=== PATIENT | male | born 1985 | race Caucasian/White ===

== ENCOUNTER 2016-08-04 19:05 | Emergency (ER) | payer SELFPAY ==
[~2016-08-04] VITALS: Ht 167.6 cm; Wt 68.2 kg
[2016-08-04] MEDS ORDERED: SERT50TA12 PO (19:13)
[2016-08-04] MEDS ORDERED: IBUPROFEN 800 MG TABLET PO ONE (21:00)
[2016-08-04 21:06] VITALS: BP 119/69
== END 2016-08-04 22:00 | disposition home or self-care (01) ==
LOC: EMS 19:07
DX: L03.012 Cellulitis of left finger (principal)
CPT/HCPCS: 99283